=== PATIENT | male | born 1955 | race Caucasian/White ===

== ENCOUNTER 2024-07-30 11:10 | Outpatient (REF) | payer MEDICARE, OTHER, SELFPAY ==
--- NOTE | 2024-07-30 10:40 | TONSIL_PTH ---
PATIENT: Huang Al LOC: [facility] U#:[id number] AGE/SX: 68/M ROOM: RE07/30/[address]: Bill Ham MD : 1955 BED: DIS: 07/30/2024 SPEC #: [id number] RECD: 07/30/24 16:51 STATUS: DANETTE REQ #: [id number] AIMEE: 07/30/24 10:[address]: Bill Ham DEPT: Surgical Specimen RECD BY: Ana Mason ENTERED: 07/30/24 16:51 SP TYPE: TONSIL OTHR DR: Unknown,Unknown Tissues: 1 - TONSIL BIOPSY Procedures: GROSS AND MICRO LEVEL 4 IMMUNOPEROXIDASE STAIN Comments: [id number]
== END 2024-07-30 11:11 | disposition home or self-care (01) ==
LOC: LBN 11:10
PROVIDERS: Visit Provider Otolaryngology
DX: C09.9 Malignant neoplasm of tonsil, unspecified (principal); B97.7 Papillomavirus as the cause of diseases classified elsewhere
CPT/HCPCS: 88305; 88361

== ENCOUNTER 2024-08-16 11:40 | Outpatient (REF) | payer MEDICARE, OTHER, SELFPAY ==
[2024-08-16 21:56] LABS: ALT 30 U/L (16-63); AST 16 U/L (15-37); Albumin 4.2 g/dL (3.4-5.0); Alkaline Phosphatase 65 U/L (46-116); Anion Gap 9.4 mmol/L (3-11); BUN 22 mg/dL (7-18); Bilirubin, Total 0.77 mg/dL (0.2-1.0); CO2 29.6 mmol/L (21.0-32.0); CREATININE 0.9 mg/dL (0.70-1.30); Calcium 9.4 mg/dL (8.5-10.1); Calculated LDL 123 mg/dL (<100); Chloride 107 mmol/L (98-107); Cholesterol 199 mg/dL (<200); Estimated GFR 91.88 (mL/min/1.73m2); Glucose 94 mg/dL (74-106); HDL Cholesterol 61 mg/dL (40-60); Potassium 4.3 mmol/L (3.5-5.1); Sodium 146 mmol/L (136-145); Total Protein 7.3 g/dL (6.4-8.2); Triglyceride 79 mg/dL (<150)
[2024-08-17 17:57] LABS: PSA, Screening 17.4 ng/mL (<=6.5)
[2024-08-17 18:33] LABS: HIV-1/2 Ag & Ab Screen Negative (Negative)
[2024-08-17 18:43] LABS: Hepatitis C Ab w Rflx HCV PCR Negative (Negative)
== END 2024-08-16 11:41 | disposition home or self-care (01) ==
LOC: LBN 11:40
PROVIDERS: PCP Nurse Practitioner Family; Visit Provider Nurse Practitioner Family
DX: Z11.4 Encounter for screening for human immunodeficiency virus [HIV] (principal); Z11.59 Encounter for screening for other viral diseases; Z13.1 Encounter for screening for diabetes mellitus; E78.5 Hyperlipidemia, unspecified; Z12.5 Encounter for screening for malignant neoplasm of prostate; Z23 Encounter for immunization; M25.571 Pain in right ankle and joints of right foot; B97.7 Papillomavirus as the cause of diseases classified elsewhere; C09.9 Malignant neoplasm of tonsil, unspecified
CPT/HCPCS: 80053; 80061; 84153; 86803; 87389

== ENCOUNTER 2024-08-16 12:50 | Outpatient (CLI) | payer MEDICARE, OTHER, SELFPAY ==
--- NOTE | 2024-08-16 16:17 | DI.RAD_ITS ---
Exam(s) XR ANKLE RT COMPLETE EXAM: XR ANKLE RT COMPLETE CLINICAL HISTORY: M25.571 Chronic pain Rt ankle/joints of RT foot. TECHNIQUE: 2D digital imaging was performed of the right ankle. Three images were obtained. AP, la teral and oblique views were obtained. COMPARISON: No exams were available for comparison FINDINGS: BONES: No acute fracture is present. No bony destructive lesion is seen. JOINTS: The ankle mortise is normally aligned. Small osteophyte anteriorly at the distal tibia. SOFT TISSUE: Normal. IMPRESSION: Mild degenerative changes seen at the right ankle. DATA REPOSITORY: RADIATION DOSE DELIVERED:
== END 2024-08-16 13:10 ==
LOC: DI 12:52
PROVIDERS: PCP Nurse Practitioner Family; Visit Provider Nurse Practitioner Family
DX: M19.071 Primary osteoarthritis, right ankle and foot (principal)
CPT/HCPCS: 73610

== ENCOUNTER 2024-08-21 09:11 | Outpatient (CLI) | payer MEDICARE, OTHER, SELFPAY ==
[2024-08-21 10:37] LABS: Estimated GFR 80.97 (mL/min/1.73m2)
[2024-08-21] MEDS: Omnipaque 350 MG/ML 500 ML BTL-Imaging package 100 ML IJ (10:58)
[2024-08-21] MEDS: Normal Saline - Diluent 50 ML VIAL IJ (11:00)
--- NOTE | 2024-08-21 11:06 | DI.CT_ITS ---
Exam(s) CT NECK W EXAM: CT NECK W CLINICAL HISTORY: Assess for tete metastasis, tumor extent,ca rt tonsil,hpv,c09.9,b97.7. TECHNIQUE: Imaging Protocol: Axial computed tomography images with coronal and sagittal reformatted images were created and reviewed CONTRAST MATERIAL: Intravenous: Omnipaque 350 Contrast volume:100 ml contrast COMPARISON: No exams were available for comparison FINDINGS: Parotids: Normal. Submandibular glands: Normal. Thyroid gland: Normal. Lymph nodes: Left axillary lymph node measuring 13 millimeters. Additional left axillary lymph node measuring 9 millimeters. Small bilateral cervical of the as less than 5 millimeters in size, not de finitely pathologically enlarged. Carotids arteries: No significant stenosis or dissection. Vertebral arteries: No significant stenosis or dissection. Soft tissues: There is artifact related to dental work. There is asymmetry on the right side at the l evel of the tonsils with apparent mass deforming the contour of the oropharynx. Discrete borders of t he mass are difficult to discern. Approximate measurements are 2 by 11 by 13 millimeters. the floor o f the mouth is unremarkable as visualized. The epiglottis and vocal cords are within normal limits. Lungs: Images through both lung apices are unremarkable. Bones: Degenerative changes of the cervical spine. Visualized portions of the brain and orbits: Unremarkable. Sinuses and mastoids: Mucosal thickening at the floors of the maxillary sinuses. Opacification of sev eral ethmoid sinuses. Mastoid air cells are clear. IMPRESSION: Borderline enlargement of left axillary lymph nodes. No abnormally enlarged cervical lymph nodes. Right-sided tonsillar mass. RADIATION DOSE DELIVERED: 325.58mGy.cm Total DLP DATA REPOSITORY: All CT scans at this facility are submitted to the National Radiology Data Registry (NRDR) Dose Index Registry (DIR) with the [employer] ([employer]). RADIATION OPTIMIZATION: All CT scans at this facility use at least one of these dose optimization te chniques: automated exposure control; mA and/or kV adjustment per patient size (includes targeted exa ms where dose is matched to clinical indication); or iterative reconstruction.
== END 2024-08-21 09:31 ==
LOC: DI 09:12
PROVIDERS: PCP Nurse Practitioner Family; Visit Provider Otolaryngology
DX: C09.9 Malignant neoplasm of tonsil, unspecified (principal); B97.7 Papillomavirus as the cause of diseases classified elsewhere
CPT/HCPCS: 70491; 82565

== ENCOUNTER 2024-10-29 04:10 | Outpatient (CLI) | payer MEDICARE, OTHER, SELFPAY ==
[2024-10-30 18:23] LABS: PSA, Screening 17.2 ng/mL (<=6.5)
== END 2024-10-29 04:11 | disposition home or self-care (01) ==
LOC: LBO 04:10
PROVIDERS: PCP Nurse Practitioner Family; Visit Provider Nurse Practitioner Family
DX: R97.20 Elevated prostate specific antigen [PSA] (principal)
CPT/HCPCS: 36415; 84153

== ENCOUNTER 2024-12-28 00:47 | Outpatient (CLI) | payer MEDICARE, OTHER, SELFPAY ==
[2025-01-01 12:27] LABS: PSA, Ultrasensitive 22.5 ng/mL (<= 6.5)
== END 2024-12-28 00:48 | disposition home or self-care (01) ==
LOC: LBO 00:47
PROVIDERS: PCP Nurse Practitioner Family; Visit Provider Student in an Organized Health Care Education/Training Program
DX: R97.20 Elevated prostate specific antigen [PSA] (principal)
CPT/HCPCS: 36415; 84153

== ENCOUNTER 2025-06-25 10:04 | Outpatient (CLI) | payer MEDICARE, OTHER, SELFPAY | END 2025-06-25 10:05 | disposition home or self-care (01) | PROVIDERS: PCP Nurse Practitioner Family; Visit Provider Urology | DX: R39.9 Unspecified symptoms and signs involving the genitourinary system (principal); C61 Malignant neoplasm of prostate | CPT/HCPCS: 87086 ==

== ENCOUNTER → 2025-08-23 03:35 | Outpatient (CLI) | payer MEDICARE, OTHER, SELFPAY ==
--- NOTE | 2025-08-23 13:16 | DI.RAD_ITS ---
Exam(s) XR SHOULDER LT COMPLETE 2+V EXAM: XR SHOULDER LT COMPLETE 2+V CLINICAL HISTORY: lifting injury,LT SHOULDER PAIN, M25.512. TECHNIQUE: 2D digital imaging was performed. COMPARISON: No exams were available for comparison FINDINGS: Four views No evidence of fracture or dislocation or abnormal soft tissue calcifications. Subacromial space is not diminished. There are mild degenerative changes in the glenohumeral joint. Moderate degenerative changes in the AC joint. Clavicle otherwise unremarkable. Bone density is normal and there are no osseous lesions. IMPRESSION: There are mild degenerative changes in the glenohumeral joint. DATA REPOSITORY: RADIATION DOSE DELIVERED:
== END ==
LOC: DI 03:35
PROVIDERS: PCP Nurse Practitioner Family; Visit Provider Nurse Practitioner Family
DX: M19.012 Primary osteoarthritis, left shoulder (principal)
CPT/HCPCS: 73030

== ENCOUNTER → 2025-09-09 01:59 | Outpatient (CLI) | payer MEDICARE, OTHER, SELFPAY ==
--- NOTE | 2025-09-09 | DI.CT_ITS ---
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 Computer aided detection (CAD) was utilized. CONTRAST MATERIAL: Intravenous: Omnipaque 350 Contrast volume:100 ml Oral: no COMPARISON: CT RENAL COLIC WO CONTRAST from 09/28/[address] NECK W from 08/21/2024 FINDINGS: Neck: Parotids/submandibular/thyroid gland: Normal. Lymphadenopathy: No enlargement. Carotids/Jugular: Within normal limits. Soft tissues: Surgical clips noted on the right side of the neck. And right tonsillar region. Mass no longer visible. Bones: No fracture. No lytic or blastic lesions. Sinuses: Mucosal thickening of the maxillary sinuses. Opacification of a few ethmoid sinuses. Orbits: Unremarkable. Chest: Tracheobronchial tree: Patent where visualized. Mediastinum and Estrella: No dominant adenopathy or fluid collection. Pulmonary parenchyma: No consolidation or dominant measurable mass. Pleura: No effusion or pneumothorax. Heart/Aorta: Thoracic aorta non-dilated. The heart is not dilated. No coronary artery calcifications are seen. Pulmonary arteries: No evidence of emboli. Bones: No fracture. No lytic or blastic lesions. IMPRESSION: Previously noted right tonsillar mass no longer visible. Surgical clips in the right side of the neck and right tonsillar region. No adenopathy. No evidence of metastatic disease in the chest. RADIATION DOSE DELIVERED: 490.28mGy.cm Total DLP DATA REPOSITORY: All CT scans at this facility are submitted to the National Radiology Data Registry (NRDR) Dose Index Registry (DIR) with the [employer] ([employer]). RADIATION OPTIMIZATION: All CT scans at this facility use at least one of these dose optimization techniques: automated exposure control; mA and/or kV adjustment per patient size (includes targeted exams where dose is matched to clinical indication); or iterative reconstruction.
[2025-09-09] MEDS: Omnipaque 350 MG/ML 100 ML BTL IJ (12:54)
[2025-09-09] MEDS: Normal Saline - Diluent 50 ML VIAL IJ (12:55)
== END ==
LOC: DI 01:59
PROVIDERS: PCP Nurse Practitioner Family; Visit Provider Physician Assistant
DX: C61 Malignant neoplasm of prostate (principal); C09.9 Malignant neoplasm of tonsil, unspecified
CPT/HCPCS: 70491; 84153; 71260; 82565; J3490